=== PATIENT | male | born 1980 | race Caucasian/White ===

== ENCOUNTER 2024-10-29 03:23 | Emergency (ER) | payer MEDICAID ==
[~2024-10-29] VITALS: Ht 172.7 cm; Wt 75.0 kg
[2024-10-29 03:43] VITALS: O2SAT 99
[2024-10-29] MEDS: KETOROLAC 30MG/ML VIAL IM ONE (04:44)
[2024-10-29] MEDS ORDERED: NAPR-1486 MT (05:46)
[2024-10-29 06:23] VITALS: BP 122/80; PULSE 85; RESP 15; TEMP 36.8; O2SAT 99
== END 2024-10-29 06:23 | disposition home or self-care (01) ==
LOC: ER 03:55
DX: M25.512 Pain in left shoulder (principal); M54.50 Low back pain, unspecified; Z79.1 Long term (current) use of non-steroidal anti-inflammatories (NSAID); W01.0XXA Fall on same level from slipping, tripping and stumbling without subsequent striking against object, initial encounter; Y93.89 Activity, other specified; Y92.89 Other specified places as the place of occurrence of the external cause; Y99.0 Civilian activity done for income or pay
CPT/HCPCS: 99284; 72100; 73030; 96372; J1885